=== PATIENT | female | born 1955 | race Caucasian/White ===

== ENCOUNTER 2023-05-10 17:32 | Emergency (ER) | payer OTHER ==
[~2023-05-10] VITALS: Ht 160 cm; Wt 84.4 kg
[2023-05-10 17:40] VITALS: BP 162/90
[2023-05-10] MEDS ORDERED: IBUP-2213 PO ×2 (18:40→18:50)
[2023-05-10] MEDS ORDERED: ACYC-279 PO ×2 (18:40→18:50)
[2023-05-10 18:48] VITALS: BP 142/91
--- NOTE | 2023-05-10 18:57 | NUR ---
Patient discharged with v/s stable. Written and verbal after care instructions given and explained. Patient alert, oriented and verbalized understanding of instructions. Ambulatory with steady gait. All questions addressed prior to discharge. ID band removed. Patient advised to follow up with PMD. Rx of Acyclovir and Ibuprofen given. Patient educated on indication of medication including possible reaction and side effects. Opportunity to ask questions provided and answered. Pt instructed to return back to the ER, if condition worsens.
== END 2023-05-10 18:57 | disposition home or self-care (01) ==
LOC: MED 17:32
DX: B02.9 Zoster without complications (principal); Z79.899 Other long term (current) drug therapy
CPT/HCPCS: 99283